=== PATIENT | female | born 1990 | race Caucasian/White ===

== ENCOUNTER 2017-03-29 11:15 | Inpatient (IN) | payer BC ==
[~2017-03-29] VITALS: Ht 165.1 cm; Wt 67.1 kg
--- NOTE | ~2017-03-29 | FD ---
ADMIT: 03/29/2017 RM/LOC: 202 [facility] MR#: [id number] 26[address] [facility] [address] [place] [phone] GERARDO HAMMER [address] [place] [address] Final Diagnosis SEX: F AGE: 26 : 1990 ADMISSION DATE: 03/29/2017 DISCHARGE DATE: 04/01/2017 FINAL DIAGNOSIS: 1. Intrauterine at term. 2. Preeclampsia. PROCEDURE: Outlet forceps-assisted vaginal delivery. Tamra Ansari MD/ erin JOB #: [id number] CC: Tamra Ansari MD, Attending Physician Tamra Ansari MD, Family Physician
--- NOTE | 2017-03-30 08:03 | HP ---
ADMIT: 03/29/2017 RM/LOC: 202 [facility] MR#: [id number] [address] [place], [place] [phone] GERARDO HAMMER [address] [place] [address] History and Physical SEX: F AGE: 26 : 1990 DATE OF SERVICE: REASON FOR ADMISSION: Induction of labor secondary to preeclampsia. HISTORY OF PRESENT ILLNESS: The patient is a 26-year-old 1, para 0, who presented to Labor and Delivery at 37 and 4/7th weeks' gestation from the clinic after being noted to have blood pressures in the 150s over 90s. The patient had a previous 24-hour urine protein performed which showed greater than 300 mg of protein in 24 hours. Due to this elevated blood pressure and proteinuria, the patient was diagnosed with preeclampsia and decision was made to proceed with induction of labor at term. The patient's had been, otherwise, complicated by Rh negative status. PAST MEDICAL HISTORY: Noncontributory. PAST SURGICAL HISTORY: Tonsillectomy. CURRENT MEDICATIONS: vitamins daily. ALLERGIES: PENICILLIN WHICH CAUSED HIVES, SULFA WHICH CAUSES HIVES, AND MOLD SPORES WHICH CAUSED HIVES. SOCIAL HISTORY: The patient is . She denies any alcohol, tobacco, or drug use. FAMILY HISTORY: Noncontributory. PHYSICAL EXAMINATION: VITAL SIGNS: On admission, blood pressure 144/94, pulse 96, respirations 16, temperature 96.9. HEART: Regular rate and rhythm without murmurs, gallops, or rubs. LUNGS: Clear to auscultation bilaterally. ABDOMEN: Soft, nontender, gravid. EXTREMITIES: 1+ edema. No calf tenderness. heart tones are in the 140s with moderate variability and accelerations present. Contractions are irregular on admission. Cervix is 2 cm dilated, ADMIT: 03/29/2017 RM/LOC: 202 [facility] MR#: [id number] 26[address] [facility] [address] [place], [place] [id number] HAMMERGERARDO [address] [place] [address] History and Physical SEX: F AGE: 26 : 1990 70% effaced, and -2 station. LABORATORY DATA: White count 6.4, hemoglobin 11.0, hematocrit 34.7, platelets 158. Sodium 137, potassium 4.4, BUN 13, creatinine 0.9, glucose 139, AST 20, ALT 20. ASSESSMENT AND PLAN: 1. A 26-year-old 1, para 0, at 37-4/7th weeks' gestation. 2. Preeclampsia. Plan to admit and induce labor with Pitocin. No severe features of preeclampsia noted at this time. We will anticipate a spontaneous vaginal delivery. 3. Rh negative. We will give RhoGAM if indicated. Tamra Ansari MD/ felisha JOB #: [id number] CC: Tamra Ansari, Attending Physician Tamra Ansari, Family Physician
[2017-04-02] MEDS ORDERED: PRENATAL VIT1 TAB PO (13:12)
[2017-04-02] MEDS ORDERED: TYLENOL EXTRA500 M1 PO (13:12)
[2017-04-02] MEDS ORDERED: MOTRIN-DPS800 MG PO (13:12)
[2017-04-02] MEDS ORDERED: OXY IR DPS5 MG PO (13:12)
[2017-04-02] MEDS ORDERED: MIRALAX PACKET17 GM PO (13:13)
[2017-04-02] MEDS ORDERED: COLACE-DPS100 MG PO (13:13)
[2017-04-02] MEDS ORDERED: NIPPLECREAM TP (13:13)
--- NOTE | 2017-05-07 09:26 | OR ---
ADMIT: 03/29/2017 RM/LOC: 202 [facility] MR#: [id number] 26[address] [facility] [address] [place] [phone] GERARDO HAMMER [address] [place] [address] Operative/Delivery Room Report SEX: F AGE: 26 : 1990 SURGERY DATE: 03/30/2017 SURGEON: Tamra Ansari MD PROCEDURE: Outlet forceps-assisted vaginal delivery. PREOPERATIVE DIAGNOSES: 1. Intrauterine at 37 and 5/7th weeks' gestation. 2. Preeclampsia. 3. Arrest of descent. POSTOPERATIVE DIAGNOSES: 1. Intrauterine at 37 and 5/7th weeks' gestation. 2. Preeclampsia. 3. Arrest of descent. FINDINGS: 1. Liveborn male infant, scores 8 at 1 minute, 9 at 5 minutes. Weight 7 pounds 8 ounces. 2. Third-degree perineal laceration. ESTIMATED BLOOD LOSS: 300 mL. ANESTHESIA: Epidural and local infiltration of 1% lidocaine. COMPLICATIONS: None. INDICATIONS FOR PROCEDURE: The patient is a 26-year-old 1, para 0 who presented to Labor and Delivery for induction of labor at 37 and 5/7th weeks' gestation by last menstrual period for induction of labor secondary to preeclampsia. The patient had been noted in the office to have blood pressures greater than 150s over 90s and had greater than 300 mg of protein in 24 hours as well. Due to this, the patient was diagnosed with pre-eclampsia and decision was made to proceed with induction of labor. The patient had Pitocin induction of labor. She also had a Freed bulb placed for cervical ripening. When the patient was approximately 3 cm dilated, artificial rupture of membranes was performed. The patient progressed through labor to completely dilated. She then pushed for approximately 3.5 hours. At that point, the patient stated she no longer had the energy to push and so management options were discussed and she wished to proceed with forceps- assisted vaginal delivery. DESCRIPTION OF PROCEDURE: The patient was placed in the dorsal lithotomy position. The bladder was drained of clear urine. Adequate anesthesia was noted. Position was checked and the infant's vertex was noted to be in the THEE position over midline. The Luikart Garcia forceps were placed without difficulty and sagittal suture was noted to be in the midline. With the next contraction, gentle traction was placed on the forceps and the infant's vertex delivered through a large crown. The forceps were then removed. The patient ADMIT: 03/29/2017 RM/LOC: 202 [facility] MR#: [id number] [address] [facility] [address] [place] [phone] GERARDO HAMMER [address] [place], [place] [id number] Operative/Delivery Room Report SEX: F AGE: 26 : 1990 then pushed and the 's vertex delivered in the occiput anterior position. The head then appeared to restitute to the TANISHA position. The anterior shoulder delivered, the posterior shoulder followed, and the remainder of the infant delivered without difficulty as well. The infant was dried and handed off to the mother's abdomen where nursing personnel were in attendance. Twenty units of Pitocin were placed in IV bag to firm the uterus. The cord was clamped and cut. The placenta delivered intact spontaneously. The cervix was examined and was noted to be free of lacerations. The vaginal vault and perineum were examined, there was noted to be third-degree midline laceration. Glove was changed and the rectal exam was performed and the rectal mucosa was noted to be intact. The anal sphincter was brought together using 2 [id number] stitches of 2-0 Vicryl. The perineal incision was repaired in the usual fashion. The patient tolerated the procedure well. All sponge and needle counts were correct. The patient and infant recovered in her room in stable condition. Tamra Ansari MD/ felisha JOB #: [id number] CC: Tamra Ansari, Attending Physician Tamra Ansari, Family Physician
== END 2017-04-01 11:30 | disposition home or self-care (01) | DRG 775 ==
LOC: BC 11:15 → 2LDRP 11:15 → BC 04-14 08:00
PROVIDERS: ADMIT Obstetrics & Gynecology
PROC: 10D07Z3 Extraction of Products of Conception, Low Forceps, Via Natural or Artificial Opening (ICD-10-PCS; principal; 2017-03-30)
PROC: 3E0P7GC Introduction of Other Therapeutic Substance into Female Reproductive, Via Natural or Artificial Opening (ICD-10-PCS; principal; 2017-03-30)
PROC: 0DQR0ZZ Repair Anal Sphincter, Open Approach (ICD-10-PCS; principal; 2017-03-30)
PROC: 3E0234Z Introduction of Serum, Toxoid and Vaccine into Muscle, Percutaneous Approach (ICD-10-PCS; principal; 2017-03-30)
PROC: 10907ZC Drainage of Amniotic Fluid, Therapeutic from Products of Conception, Via Natural or Artificial Opening (ICD-10-PCS; principal; 2017-03-30)
PROC: 3E033VJ Introduction of Other Hormone into Peripheral Vein, Percutaneous Approach (ICD-10-PCS; principal; 2017-03-30)
DX: O14.04 Mild to moderate pre-eclampsia, complicating childbirth (principal); O70.20 Third degree perineal laceration during delivery, unspecified; O75.89 Other specified complications of labor and delivery; O62.1 Secondary uterine inertia; Z3A.37 37 weeks gestation of pregnancy; Z37.0 Single live birth